=== PATIENT | male | born 2005 | race Caucasian/White ===

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

== ENCOUNTER → 2023-01-19 | Outpatient (CLI) | payer OTHER ==
--- NOTE | 2023-01-19 13:57 | CA ---
Exercise Stress Test Report Name: Carlos Barba Exam Date: 01/19/2023 11:19 Exam Location: [place] Stress Ht (in): 73 Wt (lb): 155 BSA: 1.93 Ordering Phys: Jakob Bethea DO Referring Phys: BETHEA Technologist: Jakob Addison Age: 17 Gender: M : 2005 Procedure CPT: Indications: R00.2 PALPITATIONS R07.89 CHEST PAIN ICD-10 Codes: Patient History: Chest pain, Syncope and palpitations Medications: Meds past 24 hrs: Pretest Chest Pain: STRESS TEST El Protocol Exercise Duration (min:sec): 14:[address] Depressions (mm): Angina Score: Millan Score: Resting HR (bpm): 61 Peak HR (bpm): 171 Resting BP (mmHg): 118 / 74 Peak BP (mmHg): 191 / 77 MPHR: 201 Target HR: 171 % MPHR: 85 METS: 14.7 Total Dose: Peak Dose: Atropine: Double Product: 85178 BP Response: Stress Termination: Reached target heart rate Stress Symptoms: No chest pain or symptoms Stress Summary: ECG ANALYSIS Resting ECG: Stress ECG: CONCLUSIONS Patient underwent exercise stress EKG with a El protocol treadmill stress test. Patient exercised into Stage 4 for a total of 14 minutes and 6 seconds reaching a total of 14.7 METS. Patient's maximum heart rate was 171 which represented 85% age- predicted maximum heart rate. Stress EKG findings: At baseline patient's EKG showed normal sinus rhythm, normal axis, minimal J-point elevation without any significant ST-T wave abnormalities. At peak exercise, EKG showed no significant change from baseline. Conclusions: 1. Normal EKG response to exercise without evidence of inducible ischemia. 2. Fair exercise capacity. Dr. Fernando Terrazas DO (Electronically Signed) Final Date: 19 January 2023 13:57
== END | disposition home or self-care (01) ==
LOC: RADNMMAIN 10:31
PROVIDERS: ATTEND Family Medicine
DX: R00.2 Palpitations (principal); R07.89 Other chest pain
CPT/HCPCS: 93017; 93270